=== PATIENT | female | born 1970 | race Caucasian/White ===

== ENCOUNTER → 2018-12-05 | Outpatient (CLI) | payer OTHER, MEDICAID | LOC: M.CT 12-02 16:04 | DX: Z12.31 Encounter for screening mammogram for malignant neoplasm of breast (principal); M47.812 Spondylosis without myelopathy or radiculopathy, cervical region; R90.82 White matter disease, unspecified; R05 Cough; Z85.3 Personal history of malignant neoplasm of breast ==